=== PATIENT | female | born 1995 | race Caucasian/White ===

== ENCOUNTER 2018-08-06 20:36 | Emergency (ER) | payer OTHER, BC ==
[~2018-08-06] VITALS: Ht 157.5 cm; Wt 120.2 kg
--- NOTE | 2018-08-06 21:08 | PHYS DOC ---
Past History Past Medical History: No Pertinent History Past Surgical History: No Surgical History Alcohol Use: None Drug Use: None Adult General Chief Complaint Chief Complaint: ABDOMINAL PAIN IN HPI HPI 22-year-old female presents with abdominal pain in . She is 12-1/ 2 weeks . She has been having loose stools and diarrhea for 3 days. Today she has had more for abdominal cramping. She states it feels worse when she drinks fluids so she knows she has not been drinking as much as she should. She has had difficulties with nausea throughout her . She is already on Zofran as needed. Patient has been able to eat a small amount. She has not had vomiting. Patient denies fever or chills. She had an ultrasound 3 weeks ago that showed normal intrauterine . Her previous pregnancies ended in miscarriage, blighted ovum, and likely genetic mismatch. All 3 spontaneously terminated prior to 8 weeks. Review of Systems Review of Systems Constitutional: Denies fever or chills [] Eyes: Denies change in visual acuity, redness, or eye pain [] HENT: Denies nasal congestion or sore throat [] Respiratory: Denies cough or shortness of breath [] Cardiovascular: No additional information not addressed in HPI [] GI: Abdominal pain with nausea. No vomiting, bloody stools or diarrhea. [] : Dysuria[] Musculoskeletal: Denies back pain or joint pain [] Integument: Denies rash or skin lesions [] Neurologic: Denies headache, focal weakness or sensory changes [] Endocrine: Denies polyuria or polydipsia [] All other systems were reviewed and found to be within normal limits, except as documented in this note. Current Medications Current Medications Current Medications Medications (Trade) Dose Ordered Sig/[facility] Start Time Stop Time Status Last Admin Dose Admin Sodium Chloride 1,000 ml @ 1,000 mls/hr 1X ONCE 08/06/18 21:30 08/06/18 22:29 Allergies Allergies Allergies Coded Allergies Type Severity Reaction Last Updated Verified No Known Drug Allergies 03/08/15 No Physical Exam Physical Exam Constitutional: Well developed, well nourished, no acute distress, non-toxic appearance. [] HENT: Normocephalic, atraumatic, bilateral external ears normal, oropharynx moist, no oral exudates, nose normal. [] Eyes: PERRLA, EOMI, conjunctiva normal, no discharge. [] Neck: Normal range of motion, no tenderness, supple, no stridor. [] Cardiovascular:Heart rate regular rhythm, no murmur [] Lungs & Thorax: Bilateral breath sounds clear to auscultation [] Abdomen: Bowel sounds normal, soft, no tenderness, no masses, no pulsatile masses. [] Skin: Warm, dry, no erythema, no rash. [] Back: No tenderness, no CVA tenderness. [] Extremities: No tenderness, no cyanosis, no clubbing, ROM intact, no edema. [] Neurologic: Alert and oriented X 3, normal motor function, normal sensory function, no focal deficits noted. [] Psychologic: Affect normal, judgement normal, mood normal. [] EKG EKG [] Radiology/Procedures Radiology/Procedures [] Impressions: INDICATION: UPPER ABD PAIN COMPARISON: None. TECHNIQUE: Grayscale and color ultrasound images uterus and adnexa. FINDINGS: Uterus: 120 x 92 x 79 mm. Intrauterine gestational sac is identified with a pole with a heart beat of 162. The placenta is located posteriorly. [place]-rump length is 61 mm The right ovary is not visualized. Left ovary is 28 x 16 x 15 mm with vascular flow. IMPRESSION: 1. Intrauterine gestational sac is identified with a pole with estimated gestational age of 12 weeks and 4 days and estimated due date of February 14, 2019 and a positive heartbeat. 2. Recommend routine anomaly screening at 18-22 weeks. Electronically signed by: Misael Haider MD (08/06/2018 9:50 PM) [facility] DICTATED AND SIGNED BY: MISAEL HAIDER MD DATE: 08/06/182146 CC: SKYLA MACDONALD DO; KORY PRADO Course & Med Decision Making Course & Med Decision Making Pertinent Labs and Imaging studies reviewed. (See chart for details) The patient's ultrasound shows an intrauterine, live . Her labs are unremarkable. Her urinalysis is negative for infection. The patient is feeling better after saline. She was having additional cramping from dehydration. I advised that she try to stay well-hydrated. She is stable for discharge at this time. [] Dragon Disclaimer Dragon Disclaimer This electronic medical record was generated, in whole or in part, using a voice recognition dictation system. Departure Departure: Referrals: KORY PRADO (PCP) SKYLA MACDONALD DO Aug 06, 2018 21:08
[2018-08-06] MEDS ORDERED: IV NORMAL SALINE 1,000ML 1,000 ML IV ONE (21:30)
--- NOTE | 2018-08-06 21:54 | RAD ---
INDICATION: UPPER ABD PAIN COMPARISON: None. TECHNIQUE: Grayscale and color ultrasound images uterus and adnexa. FINDINGS: Uterus: 120 x 92 x 79 mm. Intrauterine gestational sac is identified with a pole with a heart beat of 162. The placenta is located posteriorly. [place]-rump length is 61 mm The right ovary is not visualized. Left ovary is 28 x 16 x 15 mm with vascular flow. IMPRESSION: 1. Intrauterine gestational sac is identified with a pole with estimated gestational age of 12 weeks and 4 days and estimated due date of February 14, 2019 and a positive heartbeat. 2. Recommend routine anomaly screening at 18-22 weeks. Electronically signed by: Slim Haider MD (08/06/2018 9:50 PM) [facility]
[2018-08-06 22:13] LABS: BASO # 0.1 x10^3/uL (0.0-0.2); BASO % 1 % (0-3); EOS # 0.1 x10^3/uL (0.0-0.7); EOS % 1 % (0-3); HEMATOCRIT 36.9 % (36.0-47.0); HEMOGLOBIN 12.7 g/dL (12.0-15.5); LYMPH # 2.5 x10^3/uL (1.0-4.8); LYMPH % 28 % (24-48); MEAN CORPUSCULAR HEMOGLOBIN 30 pg (25-35); MEAN CORPUSCULAR HGB CONC 34 g/dL (31-37); MEAN CORPUSCULAR VOLUME 88 fL (79-100); MONO % 11 % (0-9); NEUT # 5.3 x10^3uL (1.8-7.7); NEUT % 59 % (31-73); PLATELET COUNT 350 x10^3/uL (140-400); RED CELL DISTRIBUTION WIDTH 13.3 % (11.5-14.5); WHITE BLOOD COUNT 8.9 x10^3/uL (4.0-11.0)
[2018-08-06 22:29] LABS: ALBUMIN 3.1 g/dL (3.4-5.0); ALBUMIN/GLOBULIN RATIO 0.7 (1.0-1.7); CALCIUM 9.2 mg/dL (8.5-10.1); CREATININE 0.6 mg/dL (0.6-1.0); GFR 122.8; POTASSIUM 3.8 mmol/L (3.5-5.1); TOTAL BILIRUBIN 0.3 mg/dL (0.2-1.0); TOTAL PROTEIN 7.7 g/dL (6.4-8.2)
[2018-08-06 22:32] LABS: BACTERIA,URINE MOD /HPF (0-FEW); BILIRUBIN,URINE NEG (NEG); CLARITY,URINE HAZY; COLOR,URINE YELLOW; GLUCOSE,URINE NEG (NEG); NITRITE,URINE NEG (NEG); SQUAMOUS EPITHELIAL CELL,UR FEW /LPF; UROBILINOGEN,URINE 0.2 mg/dL (0.2 mg/dL)
[2018-08-06 23:15] VITALS: BP 110/72
== END 2018-08-06 23:32 | disposition home or self-care (01) ==
LOC: ER 20:36
DX: O26.891 Other specified pregnancy related conditions, first trimester (principal); R10.10 Upper abdominal pain, unspecified; R19.7 Diarrhea, unspecified; R30.0 Dysuria; E86.0 Dehydration; Z3A.12 12 weeks gestation of pregnancy
CPT/HCPCS: 36415; 76801; 80053; 81001; 84702; 85025; 87086; 96360; 99284-25; J7030

== ENCOUNTER 2021-03-21 10:36 | Emergency (ER) | payer BC, OTHER ==
[~2021-03-21] VITALS: Ht 157.5 cm; Wt 125.5 kg
[2021-03-21] MEDS ORDERED: KETOROLAC 30 MG/ML VIAL. IVP ONE (11:00)
--- NOTE | 2021-03-21 11:19 | PHYS DOC ---
Past History Past Medical History: Anxiety, Depression, Other Past Surgical History: No Surgical History Alcohol Use: None Drug Use: None General Adult EDM: Chief Complaint: ABDOMINAL PAIN HPI: HPI: Patient is a 25-year-old female presents with a chief complaint of upper abdominal pain primarily in the right upper quadrant. Patient states pain is been ongoing on and off since July. Over the last few days pain is progressively come worse. Patient has associated nausea and has vomited. She denies any diarrhea. Patient has been evaluated by her primary care physician and had recent labs. Patient has an upcoming scheduled ultrasound to evaluate her gallbladder. Patient's pain worse today therefore patient presents to the emergency department for evaluation. Review of Systems: Review of Systems: Constitutional: Denies fever or chills Eyes: Denies change in visual acuity HENT: Denies nasal congestion or sore throat Respiratory: Denies cough or shortness of breath Cardiovascular: Denies chest pain or edema GI: Positive abdominal pain, Positive nausea, denies vomiting, bloody stools or diarrhea : Denies dysuria Musculoskeletal: Denies back pain or joint pain Integument: Denies rash Neurologic: Denies headache, focal weakness or sensory changes Endocrine: Denies polyuria or polydipsia Lymphatic: Denies swollen glands Psychiatric: Denies depression or anxiety Current Medications: Current Meds: Current Medications Medications (Trade) Dose Ordered Sig/Jessie Start Time Stop Time Status Last Admin Dose Admin Ketorolac Tromethamine (Toradol 30mg Vial) 30 mg 1X ONCE 03/21/21 11:00 03/21/21 11:01 DC Allergies: Allergies: Allergies Coded Allergies Type Severity Reaction Last Updated Verified No Known Drug Allergies 03/08/15 No Physical Exam: PE: Constitutional: Well developed, well nourished, no acute distress, non-toxic appearance. [] HENT: Normocephalic, atraumatic, bilateral external ears normal, oropharynx moist, no oral exudates, nose normal. [] Eyes: PERRLA, EOMI, conjunctiva normal, no discharge. [] Neck: Normal range of motion, no tenderness, supple, no stridor. [] Cardiovascular:Heart rate regular rhythm, no murmur [] Lungs & Thorax: Bilateral breath sounds clear to auscultation [] Abdomen: Bowel sounds normal, soft, no tenderness, no masses, no pulsatile masses. [] Skin: Warm, dry, no erythema, no rash. [] Back: No tenderness, no CVA tenderness. [] Extremities: No tenderness, no cyanosis, no clubbing, ROM intact, no edema. [] Neurologic: Alert and oriented X 3, normal motor function, normal sensory function, no focal deficits noted. [] Psychologic: Affect normal, judgement normal, mood normal. [] Current Patient Data: Labs: Laboratory Tests Test 03/21/21 11:06 POC Urine HCG, Qualitative hcg negative (Negative) Vital Signs: Vital Signs Date Time Temp Pulse Resp B/P (MAP) Pulse Ox O2 Delivery O2 Flow Rate FiO2 03/21/21 10:40 98.1 60 20 150/75 98 Room Air EKG: EKG: [] Radiology/Procedures: Radiology/Procedures: [] Impressions: EXAM: ULTRASOUND ABDOMEN LIMITED 03/21/2021. CLINICAL HISTORY: Reason: RUQ pain / Spl. Instructions: / History: Pain COMPARISON: None available. TECHNIQUE: Limited ultrasound examination of the right upper quadrant of the abdomen was performed. FINDINGS: Liver is of diffuse increased echogenicity compatible with fatty infiltration. No apparent mass. Intrahepatic and extra hepatic biliary tree normal in caliber. The CBD measures 2 mm diameter. Gallbladder normal in size. There are echogenic shadowing foci within the lumen. No wall thickening or pericholecystic fluid. Right kidney measures 11 cm in length without hydronephrosis. Left kidney was not imaged. Limited visualized portions of pancreas aorta and IVC unremarkable. No significant ascites. IMPRESSION: 1. Cholelithiasis with no secondary signs of acute cholecystitis. 2. Fatty infiltration of the liver. Heart Score: C/O Chest Pain: N/A Risk Factors: Risk Factors: DM, Current or recent (<one month) smoker, HTN, HLP, family history of CAD, obesity. Risk Scores: Score 0 - 3: 2.5% MACE over next 6 weeks - Discharge Home Score 4 - 6: 20.3% MACE over next 6 weeks - Admit for Clinical Observation Score 7 - 10: 72.7% MACE over next 6 weeks - Early Invasive Strategies Course & Med Decision Making: Course & Med Decision Making Pertinent Labs and Imaging studies reviewed. (See chart for details) [] Patient was evaluated for chief complaint. Work-up consisted of laboratory analysis and radiologic imaging. Results reviewed and discussed with patient. Patient's labs within normal limits ultrasound gallstones in the gallbladder no secondary signs of cholecystitis. Treatment included Toradol. Patient will be discharged home with Pepcid and Ultram and zofran. Advised to take Tylenol ibuprofen as needed for pain. Patient advised to follow-up with her primary care physician. Asuncion Disclaimer: Asuncion Disclaimer: This electronic medical record was generated, in whole or in part, using a voice recognition dictation system. Departure Departure: Impression: Primary Impression: Abdominal pain Additional Impression: Cholelithiasis Disposition: HOME / SELF CARE / HOMELESS Condition: STABLE Referrals: ALAN TOLENTINO MD (PCP) Patient Instructions: Cholelithiasis Scripts Tramadol Hcl (ULTRAM) 50 Mg Tablet 1 TAB PO PRN Q6HRS PRN for pain MDD 4 Tablet(s) for 7 Days, #20 TAB 0 Refills Prov: ELDA LEDEZMA I DO 03/21/21 Famotidine (PEPCID) 20 Mg Tablet 1 TAB PO BID, #20 TAB 2 Refills Prov: ELDA LEDEZMA I DO 03/21/21 Ondansetron Hcl (ZOFRAN) 4 Mg Tablet 1 TAB PO Q6HRS, #20 TAB 8 Refills Prov: ELDA LEDEZMA I DO 03/21/21 Tramadol Hcl (ULTRAM) 50 Mg Tablet 1 TAB PO PRN Q6HRS PRN for pain MDD 4 Tablet(s) for 7 Days, #14 TAB 0 Refills Prov: ELDA LEDEZMA I DO 03/21/21 ELDA LEDEZMA I DO Mar 21, 2021 11:19
[2021-03-21 11:34] LABS: BILIRUBIN,URINE NEG (NEG); CLARITY,URINE CLEAR; COLOR,URINE YELLOW; GLUCOSE,URINE NEG (NEG); NITRITE,URINE NEG (NEG); RBC,URINE 0 /HPF (0-2); UROBILINOGEN,URINE 0.2 mg/dL (0.2 mg/dL)
[2021-03-21 11:35] LABS: BACTERIA,URINE FEW /HPF (0-FEW); SQUAMOUS EPITHELIAL CELL,UR MOD /LPF; WBC,URINE OCC /HPF (0-4)
[2021-03-21 11:54] LABS: BASO # 1.1 x10^3/uL (0.0-0.2); BASO % 8 % (0-3); EOS % 0 % (0-3); HEMATOCRIT 37.4 % (36.0-47.0); HEMOGLOBIN 12.4 g/dL (12.0-15.5); LYMPH # 2.4 x10^3/uL (1.0-4.8); LYMPH % 18 % (24-48); MEAN CORPUSCULAR HEMOGLOBIN 29 pg (25-35); MEAN CORPUSCULAR HGB CONC 33 g/dL (31-37); MEAN CORPUSCULAR VOLUME 88 fL (79-100); MONO # 0.5 x10^3/uL (0.0-1.1); MONO % 4 % (0-9); NEUT # 9.6 x10^3uL (1.8-7.7); NEUT % 71 % (31-73); PLATELET COUNT 408 x10^3/uL (140-400); RED BLOOD COUNT 4.26 x10^6/uL (3.50-5.40); RED CELL DISTRIBUTION WIDTH 13.5 % (11.5-14.5); WHITE BLOOD COUNT 13.5 x10^3/uL (4.0-11.0)
--- NOTE | 2021-03-21 11:58 | RAD ---
EXAM: ULTRASOUND ABDOMEN LIMITED 03/21/2021. CLINICAL HISTORY: Reason: RUQ pain / Spl. Instructions: / History: Pain COMPARISON: None available. TECHNIQUE: Limited ultrasound examination of the right upper quadrant of the abdomen was performed. FINDINGS: Liver is of diffuse increased echogenicity compatible with fatty infiltration. No apparent mass. Intr ahepatic and extra hepatic biliary tree normal in caliber. The CBD measures 2 mm diameter. Gallbladder normal in size. There are echogenic shadowing foci within the lumen. No wall thickening o r pericholecystic fluid. Right kidney measures 11 cm in length without hydronephrosis. Left kidney was not imaged. Limited visualized portions of pancreas aorta and IVC unremarkable. No significant ascites. IMPRESSION: 1. Cholelithiasis with no secondary signs of acute cholecystitis. 2. Fatty infiltration of the liver. Electronically signed by: Jake Alonso MD (03/21/2021 11:56 AM) [id number]
[2021-03-21 12:12] LABS: CREATININE 0.8 mg/dL (0.6-1.0); POTASSIUM 4.5 mmol/L (3.5-5.1)
[2021-03-21 12:14] LABS: ALBUMIN 3.6 g/dL (3.4-5.0); ALBUMIN/GLOBULIN RATIO 0.8 (1.0-1.7); TOTAL BILIRUBIN 0.3 mg/dL (0.2-1.0); TOTAL PROTEIN 8.1 g/dL (6.4-8.2)
[2021-03-21] MEDS ORDERED: ONDA4TAB7 PO (12:32)
[2021-03-21] MEDS ORDERED: FAMO-63 PO (12:32)
[2021-03-21] MEDS ORDERED: TRAM-48 PO ×2 (12:32→13:32)
[2021-03-21 12:43] VITALS: BP 126/82
== END 2021-03-21 13:12 | disposition home or self-care (01) ==
LOC: ER 10:36
DX: K80.20 Calculus of gallbladder without cholecystitis without obstruction (principal)
CPT/HCPCS: 36415; 76705; 80053; 81001; 81025; 85025; 96374; 99285; J1885

== ENCOUNTER → 2021-10-16 | Outpatient (CLI) | payer OTHER ==
[~2021-10-16] MED LIST: FAMO-63 PO; ONDA4TAB7 PO; TRAM-48 PO
--- NOTE | 2021-10-16 13:17 | RAD ---
Study: XR FOOT_LEFT 3 VIEWS Indication: Left foot pain. Comparison: 10/06/2015 Findings: Plantar calcaneal spur. Small Achilles insertion enthesophyte. Maintained joint spaces. Alignment is within normal limits considering the absence of weightbearing. Chronic ossific focus projecting adjac ent to the tip of the lateral malleolus. No radiographic evidence for stress injury. Impression: No acute fracture or traumatic malalignment. Electronically signed by: NABIL HARPER MD (10/16/2021 1:14 PM) [id number]
== END ==
LOC: PMG 12:34
PROVIDERS: ATTEND Nurse Practitioner Family
DX: S99.922A Unspecified injury of left foot, initial encounter (principal); M77.32 Calcaneal spur, left foot; X58.XXXA Exposure to other specified factors, initial encounter; Y93.89 Activity, other specified; Y92.89 Other specified places as the place of occurrence of the external cause; Y99.8 Other external cause status
CPT/HCPCS: 73630